=== PATIENT | male | born 1950 | race Caucasian/White ===

== ENCOUNTER → 2021-11-07 10:47 | Outpatient (BNVA) | payer MEDICARE, SELFPAY | PROVIDERS: Visit Provider Psychiatry & Neurology Neurology | DX: Z13.89 Encounter for screening for other disorder (principal) ==

== ENCOUNTER → 2022-02-02 11:10 | Outpatient (BNVA) | payer MEDICARE, BC, SELFPAY | PROVIDERS: PCP Family Medicine; Visit Provider Psychiatry & Neurology Neurology | DX: G20 Parkinson's disease (principal); Z79.899 Other long term (current) drug therapy; Z96.89 Presence of other specified functional implants | CPT/HCPCS: 99212 ==

== ENCOUNTER 2023-07-26 13:47 | Outpatient (AMB) | payer MEDICARE, SELFPAY ==
--- NOTE | 2023-07-26 13:49 | A.OFFVIS_ITS ---
Intake Vital Signs 07/26/23 13:50 Height 5 ft 10 in Weight 181 lb 6 oz BMI 26.0 BP 110/62 Blood Pressure Location Lt brachial Position Sitting Respiration 15 Pulse 78 Pulse Source Pulse Oximeter Pulse Oximetry (%) 95 Oxygen Delivery Method Room Air Intake Visit Reasons: Follow up - Parkinsons - Confirmed Intake Note: Pt presents to the office for follow up for Parkinson's. 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 He still feels dizzy. He drinks 24 oz a day . He had 1 fall 1 month ago . . His speech is worse he has some swal lowing episode swallowing difficulty but no choking. He exercises regularly his constipation is managed with MiraLax. He needs in help with some activities No hallucinations He describes the dizziness as feeling off in space more like vertigo. he wears off towards the end of the dose and has fluctuations PFSH Medical History (Updated 07/26/23 @ 14:10 by Olga Mejia MD) Parkinson's disease with dyskinesia and fluctuating manifestations Basal cell carcinoma Heart disease Testicular hernia Surgical History S/P Mohs surgery for basal cell carcinoma Family History Father Heart attack Mother Parkinson disease Family/Other Heart attack Brother Heart attack Physical Exam Vital Signs: Last Vital Signs Pulse 78 07/26/23 13:50 Resp 15 07/26/23 13:50 BP 110/62 07/26/23 13:50 Pulse Ox 95 07/26/23 13:50 Oxygen Delivery Method Room Air 07/26/23 13:50 BMI result Body Mass Index 26.0 Const General: cooperative, healthy appearing and comfortable Nutritional Appearance: average body habitus Orientation/consciousness: patient oriented x3 Eyes Pupils: Equal, round and reactive pupils present Neck Other: head tilted to right Mild decreased range of motion Neuro Other: severe hypophonia Mood normal cognition normal Moderately decreased facial expression and blink No tremors FFM and foot taps mildly decreased jazz gait tilted to left stooped, slow - very off balance General: patient oriented x3 and tone normal Cranial nerves: Yes Equal, round and reactive pupils present and Yes Normal f acial strength present Assessment & Plan Assessment & Plan (1) Parkinson's disease with dyskinesia and fluctuating manifestations: Code(s): G20.B2 - Parkinson's disease with dyskinesia, with fluctuations (2) Status post deep brain stimulator placement: Code(s): Z96.89 - Presence of other specified functional implants Plan Continue carbidopa levodopa 25/100 3-3-3-2 and increase fluids. - I discussed about Duopa to decrease fluctuations and oFf periods. He was to trial a longer acting oral form . His dizziness is likely vertigo - suggested to use walker more to prevent falls. He is waiting for battery replacement Medications: New carbidopa-levodopa 36.25-145 mg ER (Rytary) divide evenly over waking hours 2 caps PO QID 240 caps 0RF Coding Level of Care Code Est Pt Level 4 (61612) Diagnoses Parkinson's disease with dyskinesia and fluctuating manifestations G20.B2 Status post deep brain stimulator placement Z96.89
[2023-07-26 13:50] VITALS: BP 110/62; PULSE 78; RESP 15; O2SAT 95; BMI 26.0
== END 2023-07-26 14:28 | disposition home or self-care (01) ==
PROVIDERS: PCP Family Medicine; Visit Provider Psychiatry & Neurology Neurology
DX: G20.B2 Parkinson's disease with dyskinesia, with fluctuations (principal); Z96.89 Presence of other specified functional implants
CPT/HCPCS: 95970; 99214

== ENCOUNTER → 2023-07-26 13:47 | Outpatient (BNVA) | payer MEDICARE, SELFPAY | PROVIDERS: PCP Family Medicine; Visit Provider Psychiatry & Neurology Neurology | DX: G20.B2 Parkinson's disease with dyskinesia, with fluctuations (principal); Z96.89 Presence of other specified functional implants | CPT/HCPCS: 99212 ==

== ENCOUNTER 2024-03-31 09:07 | Outpatient (AMB) | payer MEDICARE, SELFPAY ==
--- NOTE | 2024-03-31 09:18 | MHC.OFFVIS ---
Vital Signs 03/31/24 09:19 Height 5 ft 10 in Weight 175 lb 6 oz BMI 25.2 BP 98/52 L Blood Pressure Location Rt brachial Position Sitting Respiration 16 Pulse 76 Pulse Source Pulse Oximeter Pulse Oximetry (%) 97 Oxygen Delivery Method Room Air Intake Visit Reasons: 4 mnts f/u appt - LVM w/add Intake Note: Pt presents to the office for 8 month follow up for Parkinson's. 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 He still feels dizzy and had an episode of passing out 2 weeks ago. He was siting- he was not feeling well, he walked to the kitchen and passed out for 2 min. His speech is worse now. He drinks 24 oz a day . He has some swallowing episode swallowing difficulty but no choking. He exercises regularly his constipation is managed with MiraLax. He needs in help with some activities No hallucinations He describes the dizziness as feeling off in space more like vertigo. he wears off towards the end of the dose and has fluctuations [facility] Medical History (Updated 03/31/24 @ 09:44 by Olga Mejia MD) Orthostatic hypotension Parkinson's disease with dyskinesia and fluctuating manifestations Basal cell carcinoma Heart disease Testicular hernia Surgical History S/P Mohs surgery for basal cell carcinoma Family History Father Heart attack Mother Parkinson disease Family/Other Heart attack Brother Heart attack Physical Exam Vital Signs: Last Vital Signs Pulse 76 03/31/24 09:19 Resp 16 03/31/24 09:19 BP 98/52 L 03/31/24 09:19 Pulse Ox 97 03/31/24 09:19 Oxygen Delivery Method Room Air 03/31/24 09:19 BMI result Body Mass Index 25.2 Const General: cooperative, healthy appearing and comfortable Nutritional Appearance: average body habitus Orientation/consciousness: patient oriented x3 Eyes Pupils: Equal, round and reactive pupils present Neck Other: head tilted to right Mild decreased range of motion Neuro Other: severe hypophonia Mood normal cognition normal Moderately decreased facial expression and blink No tremors FFM and foot taps mildly decreased jazz gait tilted to left stooped, slow - very off balance General: patient oriented x3 and tone normal Cranial nerves: Yes Equal, round and reactive pupils present and Yes Normal facial strength present Assessment & Plan Assessment & Plan (1) Parkinson's disease with dyskinesia and fluctuating manifestations: Code(s): G20.B2 - Parkinson's disease with dyskinesia, with fluctuations Category: Medical (2) Status post deep brain stimulator placement: Code(s): Z96.89 - Presence of other specified functional implants Category: Surgical (3) Orthostatic hypotension: Code(s): I95.1 - Orthostatic hypotension Category: Medical Plan Discussed about rytary and will trial him on 36.25/145 2 caps qid Droxidopa 200 tid Home PT and Speech therapy His dizziness is likely vertigo - suggested to use walker more to prevent falls. Orders: [facility]errals [facility] Referral G20.B2 - Parkinson's disease with dyskinesia, with fluctuations, I95.1 - Orthostatic hypotension Medications: New carbidopa-levodopa 36.25-145 mg ER (Rytary) divide evenly over waking hours 2 caps PO QID 240 caps 6RF droxidopa (Northera) give consistently with OR without food, upon rising, at midday, late PM/at least 3hrs before bedtime Hold if BP is over 130/100 200 mg PO TID 90 caps 0RF Discontinued carbidopa-levodopa 25-100 mg Discontinued Reason: Doctor's Order 2 tabs PO .5 times a day 900 tabs 2RF Coding Level of Care Code Est Pt Level 4 (43945) Complex EM visit Add On G2211 Diagnoses Parkinson's disease with dyskinesia and fluctuating manifestations G20.B2 Status post deep brain stimulator placement Z96.89 Orthostatic hypotension I95.1
[2024-03-31 09:19] VITALS: BP 98/52; PULSE 76; RESP 16; O2SAT 97; BMI 25.2
== END 2024-03-31 10:01 | disposition home or self-care (01) ==
PROVIDERS: PCP Family Medicine; Visit Provider Psychiatry & Neurology Neurology
DX: G20.B2 Parkinson's disease with dyskinesia, with fluctuations (principal); Z96.89 Presence of other specified functional implants; I95.1 Orthostatic hypotension
CPT/HCPCS: 99214; G2211

== ENCOUNTER → 2024-03-31 09:07 | Outpatient (BNVA) | payer MEDICARE, SELFPAY | PROVIDERS: PCP Family Medicine; Visit Provider Psychiatry & Neurology Neurology | DX: G20.B2 Parkinson's disease with dyskinesia, with fluctuations (principal); I95.1 Orthostatic hypotension; Z96.82 Presence of neurostimulator | CPT/HCPCS: 99212 ==

== ENCOUNTER 2024-04-22 14:31 | Outpatient (AMB) | payer MEDICARE, SELFPAY ==
--- NOTE | 2024-04-22 14:36 | A.OFFVIS_ITS ---
Vital Signs 04/22/24 14:37 Height 5 ft 10 in Weight 175 lb BMI 25.1 BP 118/64 Blood Pressure Location Rt brachial Position Sitting Respiration 16 Pulse 72 Pulse Source Pulse Oximeter Pulse Oximetry (%) 95 Oxygen Delivery Method Room Air Intake Visit Reasons: Follow Up Intake Note: Pt presents to the office for a 1 month follow up for Parkinson's and orthostatic hypotension. 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 He has an appointment in [place] in Jul 2024- for DBS adjustment. patient and are very upset that DBS information was not given to the patient He started on Rytary 36/145 2 caps qid 1 month ago- he feels it is not helping, he still feels very foggy and Droxidopa 200mg tid . He had his battery replaced Aug 29 2023. He still feels dizzy and had an episode of passing out 2 weeks ago. He was siting- he was not feeling well, he walked to the kitchen and passed out for 2 min. His speech is worse now. He drinks 24 oz a day . He has some swallowing episode swallowing difficulty but no choking. He exercises regularly his constipation is managed with MiraLax. He needs in help with some activities No hallucinations He describes the dizziness as feeling off in space more like vertigo. he wears off towards the end of the dose and has fluctuations PFSH Medical History Orthostatic hypotension Parkinson's disease with dyskinesia and fluctuating manifestations Basal cell carcinoma Heart disease Testicular hernia Surgical History S/P Mohs surgery for basal cell carcinoma Family History Father Heart attack Mother Parkinson disease Family/Other Heart attack Brother Heart attack Physical Exam Vital Signs: Last Vital Signs Pulse 72 04/22/24 14:37 Resp 16 04/22/24 14:37 BP 118/64 04/22/24 14:37 Pulse Ox 95 04/22/24 14:37 Oxygen Delivery Method Room Air 04/22/24 14:37 BMI result Body Mass Index 25.1 Const General: cooperative, healthy appearing and comfortable Nutritional Appearance: average body habitus Orientation/consciousness: patient oriented x3 Eyes Pupils: Equal, round and reactive pupils present Neck Other: head tilted to right Mild decreased range of motion Neuro Other: severe hypophonia Mood normal cognition normal Moderately decreased facial expression and blink No tremors FFM and foot taps mildly decreased jazz gait tilted to left stooped, slow - very off balance General: patient oriented x3 and tone normal Cranial nerves: Yes Equal, round and reactive pupils present and Yes Normal facial strength present Assessment & Plan Assessment & Plan (1) Parkinson's disease with dyskinesia and fluctuating manifestations: Code(s): G20.B2 - Parkinson's disease with dyskinesia, with fluctuations Category: Medical (2) Status post deep brain stimulator placement: Code(s): Z96.89 - Presence of other specified functional implants Category: Surgical (3) Orthostatic hypotension: Code(s): I95.1 - Orthostatic hypotension Category: Medical Plan Increase rytary to 36/145 3 caps 4 times a day Increase Droxidopa 300 tid Increase fluids to 64 oz/day Home PT and Speech therapy His dizziness is likely vertigo - suggested to use walker more to prevent falls. Medications: Changed From carbidopa-levodopa 36.25-145 mg ER (Rytary) divide evenly over waking hours 2 caps PO QID 240 caps 6RF To carbidopa-levodopa 36.25-145 mg ER (Rytary) divide evenly over waking hours 3 caps PO QID 360 caps 6RF From droxidopa (Northera) give consistently with OR without food, upon rising, at midday, late PM/at least 3hrs before bedtime Hold if BP is over 130/100 200 mg PO TID 90 caps 0RF To droxidopa give consistently with OR without food, upon rising, at midday, late PM/at least 3hrs before bedtime Hold if BP is over 130/100 300 mg PO TID 90 caps 6RF Coding Level of Care Code Est Pt Level 4 (43550) Complex EM visit Add On G2211 Diagnoses Parkinson's disease with dyskinesia and fluctuating manifestations G20.B2 Status post deep brain stimulator placement Z96.89 Orthostatic hypotension I95.1
[2024-04-22 14:37] VITALS: BP 118/64; PULSE 72; RESP 16; O2SAT 95; BMI 25.1
== END 2024-04-22 15:16 | disposition home or self-care (01) ==
PROVIDERS: PCP Family Medicine; Visit Provider Psychiatry & Neurology Neurology
DX: G20.B2 Parkinson's disease with dyskinesia, with fluctuations (principal); Z96.82 Presence of neurostimulator; I95.1 Orthostatic hypotension
CPT/HCPCS: 99214; G2211

== ENCOUNTER → 2024-04-22 14:31 | Outpatient (BNVA) | payer MEDICARE, SELFPAY | PROVIDERS: PCP Family Medicine; Visit Provider Psychiatry & Neurology Neurology | DX: G20.B2 Parkinson's disease with dyskinesia, with fluctuations (principal); I95.1 Orthostatic hypotension; Z96.89 Presence of other specified functional implants | CPT/HCPCS: 99212 ==